=== PATIENT | male | born 1965 | race Caucasian/White ===

== ENCOUNTER 2019-03-30 04:58 | Inpatient (IN) | payer MEDICAID ==
[~2019-03-30] VITALS: Ht 185.4 cm; Wt 81.7 kg
--- NOTE | 2019-03-30 05:16 | NUR ---
Pt to room, placed on monitor and md and primary nurse at bedside, pt notes that his doctor told him his heart is only functioning at 10%
--- NOTE | 2019-03-30 05:17 | NUR ---
Pt presents to ed c/o hx of chf and due to unforeseen circumstances ran out of medications. C/o increasing swelling in legs and sobx2 weeks (around when medications ran out). States sob worse while lying flat. Denies cp. spo2 of 100% ra. tachy in room. Admits to utilizing iv meth as of recent. All monitoring applied. Vss. Call light within reach. Md at bedside for assessment.
[2019-03-30] MEDS ORDERED: SODIUM CHLORIDE FLUSH 10ML SYR IVF ONE (05:30)
--- NOTE | 2019-03-30 05:43 | NUR ---
Aware of need for urine. States unable to at this time.
[2019-03-30 05:58] LABS: MEAN CORPUSCULAR HEMOGLOBIN 22.6 pg (27.5-34.5); MEAN CORPUSCULAR HGB CONC 30.8 g/dL (33.2-36.2); MEAN CORPUSCULAR VOLUME 73.5 fL (81-97); MEAN PLATELET VOLUME 8.3 fL (7.4-10.4); PLATELET COUNT 525 x10^3/uL (130-400); RED BLOOD COUNT 4.52 x10^6/uL (4.38-5.82); RED CELL DISTRIBUTION WIDTH 16.9 % (9.4-14.8)
[2019-03-30 06:02] LABS: INTERNATIONAL NORMALIZED RATIO 1.18 (0.93-1.1); PROTHROMBIN TIME 12.3 Seconds (9.6-11.5)
[2019-03-30 06:05] LABS: ALANINE AMINOTRANSFERASE 97 U/L (12-78); ALBUMIN 2.7 g/dL (3.4-5.0); ANION GAP 7 mmol/L (5-15); CALCIUM 8.1 mg/dL (8.5-10.1); CHLORIDE 110 mmol/L (98-107); CREATININE 1.09 mg/dL (0.7-1.3)
[2019-03-30 06:10] LABS: ALKALINE PHOSPHATASE 533 U/L (45-117); BILIRUBIN,TOTAL 0.7 mg/dL (0.2-1.0); TOTAL PROTEIN 5.9 g/dL (6.4-8.2)
[2019-03-30 06:21] LABS: ANISOCYTOSIS 1+; BASOPHILS % (AUTO) 2 % (0-1); EOSINOPHILS # (AUTO) 0.12 x10^3/uL (0-0.4); EOSINOPHILS % (AUTO) 2 % (1-7); HYPOCHROMIA 1+; LYMPHOCYTES # (AUTO) 1.64 x10^3/uL (1-3.4); LYMPHOCYTES % (AUTO) 24 % (22-44); MD MORPH REVIEW ONLY; MICROCYTOSIS 1+; MONOCYTES # (AUTO) 0.59 x10^3/uL (0.2-0.8); MONOCYTES % (AUTO) 9 % (2-9); NEUTROPHILS # (AUTO) 4.37 x10^3/uL (1.8-6.8); NEUTROPHILS % (AUTO) 64 % (42-75); POLYCHROMASIA 1+
[2019-03-30 06:22] LABS: <PLATELET ESTIMATE> INCREASED; <PLT MORPHOLOGY> NORMAL PLT MORPH
[2019-03-30] MEDS ORDERED: ASPIRIN 81 MG TABLET CHEW ONE (06:27)
[2019-03-30] MEDS ORDERED: ASPIRIN 81 MG TABLET CHEW PO ONE (06:30)
--- NOTE | 2019-03-30 06:47 | NUR ---
Report to Sofie jacinto. Addendum: 03/30/19 at 0648 by DEVIN Report to Kimberly jacinto.
--- NOTE | 2019-03-30 07:25 | NUR ---
TO CT AFTER IV ESTABLISHED
[2019-03-30] MEDS ORDERED: OMNIPAQUE 350 MG/ML, 100ML BOTTLE ONE (07:51)
--- NOTE | 2019-03-30 08:03 | NUR ---
PT DENIES CP BUT C/O RIGHT GROIN PAIN FROM WHAT HE HAS BEEN TOLD IS A HERNIA. DENIES SOB WHILE AT REST. CONTINUE TO MONITOR
[2019-03-30] MEDS ORDERED: CEFTRIAXONE PMX 1GM/50ML 50 ML ONE (08:54)
[2019-03-30] MEDS ORDERED: CEFTRIAXONE PMX 1GM/50ML 50 ML IVPB ONE (09:00)
[2019-03-30] MEDS ORDERED: AZITHROMYCIN 500 MG in SODIUM CHLORIDE 0.9% 250 ML IVPB ONE (09:00)
[2019-03-30] MEDS ORDERED: SODIUM CHLORIDE FLUSH 10ML SYR IVF PRN (09:00)
[2019-03-30] MEDS: SODIUM CHLORIDE 0.9% 1,000 ML IV ONE ×2 (09:02→09:11)
--- NOTE | 2019-03-30 09:02 | NUR ---
REPORT TO AIXA DINERO
--- NOTE | 2019-03-30 09:10 | NUR ---
Michelle culp. NS held per [facility] MD orders. Remains tachycardic. Will continue to monitor.
[2019-03-30] MEDS ORDERED: ACETAMINOPHEN 325 MG TABLET PO PRN (09:30)
[2019-03-30] MEDS ORDERED: LABETALOL 5MG/ML, 20ML IVPush PRN (09:30)
--- NOTE | 2019-03-30 09:36 | NUR ---
PT WITH [facility] [place]. DENIED BY [facility] AT [facility] AND NORI AT [facility]
[2019-03-30 10:02] LABS: % IRON SATURATION 3 % (20-55); IRON LEVEL 11 mcg/dL (65-175); TOTAL IRON BINDING CAPACITY 430 mcg/dL (250-450)
[2019-03-30 10:09] LABS: % IRON SATURATION 3 % (20-55); IRON LEVEL 11 mcg/dL (65-175); TOTAL IRON BINDING CAPACITY 425 mcg/dL (250-450)
[2019-03-30 10:10] LABS: TROPONIN I 0.775 ng/mL (0.000-0.045)
[2019-03-30 10:36] VITALS: BP 108/75
[2019-03-30] MEDS: NICOTINE 7 MG/24 HR PATCH.TD24 TD SCH (10:54)
[2019-03-30] MEDS: HEPARIN 5,000 UNITS/ML, 1ML SQ SCH ×2 (10:54→18:41)
[2019-03-30] MEDS: IRON SUCROSE COMPLEX 100MG/5ML IV SCH (13:00)
[2019-03-30 13:14] LABS: MICROSCOPIC NOT IND
[2019-03-30 13:18] LABS: CULTURE INDICATED? NO
[2019-03-30 13:25] LABS: AMPHETAMINE SCREEN, URINE Positive (Negative); BARBITURATE SCREEN, URINE Negative (Negative); BENZODIAZEPINE SCREEN, URINE Negative (Negative); CANNABINOID SCREEN, URINE Negative (Negative); COCAINE SCREEN, URINE Negative (Negative); METHADONE SCREEN, URINE Negative (Negative); OPIATE SCREEN, URINE Negative (Negative)
[2019-03-30 15:14] VITALS: BP 112/84
[2019-03-30 15:15] LABS: TROPONIN I 0.518 ng/mL (0.000-0.045)
[2019-03-30] MEDS: FUROSEMIDE 40 MG/4 ML IV SCH (16:53)
[2019-03-30 16:59] LABS: HEMOGLOBIN A1C 6.3 % (4.2-6.3)
[2019-03-30 18:37] VITALS: BP 116/75
[2019-03-30] MEDS: CARVEDILOL 3.125 MG TABLET PO SCH (18:38)
[2019-03-30 19:46] VITALS: BP 116/84
[2019-03-30] MEDS: ATORVASTATIN 40 MG TABLET PO SCH (20:31)
[2019-03-30 22:09] LABS: TROPONIN I 0.383 ng/mL (0.000-0.045)
[2019-03-31] VITALS (7 sets, daily range): BP systolic 89–119; BP diastolic 61–78
[2019-03-31] MEDS: HEPARIN 5,000 UNITS/ML, 1ML SQ SCH ×3 (03:16→19:32)
[2019-03-31 05:34] LABS: ALBUMIN 2.4 g/dL (3.4-5.0); ANION GAP 6 mmol/L (5-15); CALCIUM 7.8 mg/dL (8.5-10.1); CHLORIDE 108 mmol/L (98-107)
[2019-03-31 05:38] LABS: ALANINE AMINOTRANSFERASE 135 U/L (12-78); ALKALINE PHOSPHATASE 611 U/L (45-117); BILIRUBIN,TOTAL 0.9 mg/dL (0.2-1.0); CREATININE 0.98 mg/dL (0.7-1.3); TOTAL PROTEIN 5.6 g/dL (6.4-8.2)
[2019-03-31] MEDS: CARVEDILOL 3.125 MG TABLET PO SCH (06:22)
[2019-03-31 07:35] LABS: MEAN CORPUSCULAR HEMOGLOBIN 21.9 pg (27.5-34.5); MEAN CORPUSCULAR HGB CONC 30.3 g/dL (33.2-36.2); MEAN CORPUSCULAR VOLUME 72.3 fL (81-97); MEAN PLATELET VOLUME 8.5 fL (7.4-10.4); PLATELET COUNT 430 x10^3/uL (130-400); RED BLOOD COUNT 4.31 x10^6/uL (4.38-5.82); RED CELL DISTRIBUTION WIDTH 16.9 % (9.4-14.8)
[2019-03-31 07:46] LABS: BASOPHILS # (AUTO) 0.06 x10^3/uL (0-0.1); BASOPHILS % (AUTO) 1 % (0-1); EOSINOPHILS # (AUTO) 0.09 x10^3/uL (0-0.4); EOSINOPHILS % (AUTO) 1 % (1-7); LYMPHOCYTES # (AUTO) 1.45 x10^3/uL (1-3.4); LYMPHOCYTES % (AUTO) 20 % (22-44); MD SCAN; MONOCYTES # (AUTO) 0.93 x10^3/uL (0.2-0.8); MONOCYTES % (AUTO) 13 % (2-9); NEUTROPHILS # (AUTO) 4.59 x10^3/uL (1.8-6.8); NEUTROPHILS % (AUTO) 64 % (42-75)
[2019-03-31] MEDS ORDERED: FINASTERIDE 5 MG TABLET ONE (09:20)
[2019-03-31] MEDS: IRON SUCROSE COMPLEX 100MG/5ML IV SCH (09:22)
[2019-03-31] MEDS: FINASTERIDE 5 MG TABLET PO SCH (09:23)
[2019-03-31] MEDS: ASPIRIN 81 MG TABLET CHEW PO SCH (09:23)
[2019-03-31] MEDS: FUROSEMIDE 40 MG/4 ML IV SCH ×2 (09:23→18:05)
[2019-03-31] MEDS: NICOTINE 7 MG/24 HR PATCH.TD24 TD SCH (11:45)
[2019-03-31] MEDS: CARVEDILOL 6.25 MG TABLET PO SCH (18:05)
[2019-03-31] MEDS: ATORVASTATIN 40 MG TABLET PO SCH (21:03)
[2019-04-01] VITALS (7 sets, daily range): BP systolic 94–119; BP diastolic 60–79
[2019-04-01] MEDS: HEPARIN 5,000 UNITS/ML, 1ML SQ SCH ×3 (02:55→17:05)
[2019-04-01] MEDS: CARVEDILOL 6.25 MG TABLET PO SCH ×2 (06:05→17:05)
[2019-04-01 08:27] LABS: ALANINE AMINOTRANSFERASE 137 U/L (12-78); ALBUMIN 2.4 g/dL (3.4-5.0); ANION GAP 6 mmol/L (5-15); CALCIUM 8.1 mg/dL (8.5-10.1); CHLORIDE 109 mmol/L (98-107); CREATININE 0.89 mg/dL (0.7-1.3)
[2019-04-01 08:29] LABS: ALKALINE PHOSPHATASE 573 U/L (45-117); BILIRUBIN,TOTAL 0.6 mg/dL (0.2-1.0); TOTAL PROTEIN 5.4 g/dL (6.4-8.2)
[2019-04-01] MEDS: FINASTERIDE 5 MG TABLET PO SCH (08:36)
[2019-04-01] MEDS: IRON SUCROSE COMPLEX 100MG/5ML IV SCH (08:36)
[2019-04-01] MEDS: ASPIRIN 81 MG TABLET CHEW PO SCH (08:37)
[2019-04-01] MEDS: FUROSEMIDE 40 MG/4 ML IV SCH ×2 (08:37→17:05)
[2019-04-01] MEDS: LOSARTAN 25MG TABLET PO SCH (10:03)
[2019-04-01] MEDS: NICOTINE 7 MG/24 HR PATCH.TD24 TD SCH (10:03)
[2019-04-01] MEDS: ATORVASTATIN 40 MG TABLET PO SCH (20:01)
[2019-04-02] MEDS: HEPARIN 5,000 UNITS/ML, 1ML SQ SCH ×2 (01:21→10:44)
[2019-04-02 01:30] VITALS: BP 105/72
[2019-04-02] MEDS: CARVEDILOL 6.25 MG TABLET PO SCH ×2 (06:22→16:53)
[2019-04-02] MEDS: FUROSEMIDE 40 MG/4 ML IV SCH ×2 (07:30→16:53)
[2019-04-02 08:03] VITALS: BP 107/74
[2019-04-02] MEDS: FINASTERIDE 5 MG TABLET PO SCH (08:05)
[2019-04-02] MEDS: IRON SUCROSE COMPLEX 100MG/5ML IV SCH (08:05)
[2019-04-02] MEDS: LOSARTAN 25MG TABLET PO SCH (08:05)
[2019-04-02] MEDS: ASPIRIN 81 MG TABLET CHEW PO SCH (08:05)
[2019-04-02] MEDS: NICOTINE 7 MG/24 HR PATCH.TD24 TD SCH (10:44)
[2019-04-02 11:45] LABS: ALANINE AMINOTRANSFERASE 123 U/L (12-78); ALBUMIN 2.5 g/dL (3.4-5.0); ANION GAP 5 mmol/L (5-15); CHLORIDE 110 mmol/L (98-107); CREATININE 0.97 mg/dL (0.7-1.3)
[2019-04-02 11:47] LABS: ALKALINE PHOSPHATASE 529 U/L (45-117); BASOPHILS # (AUTO) 0.05 x10^3/uL (0-0.1); BASOPHILS % (AUTO) 1 % (0-1); BILIRUBIN,TOTAL 0.4 mg/dL (0.2-1.0); EOSINOPHILS % (AUTO) 3 % (1-7); LYMPHOCYTES # (AUTO) 1.46 x10^3/uL (1-3.4); LYMPHOCYTES % (AUTO) 22 % (22-44); MD NO; MEAN CORPUSCULAR HEMOGLOBIN 22.8 pg (27.5-34.5); MEAN CORPUSCULAR HGB CONC 30.8 g/dL (33.2-36.2); MEAN CORPUSCULAR VOLUME 74.1 fL (81-97); MEAN PLATELET VOLUME 8.9 fL (7.4-10.4); MONOCYTES # (AUTO) 0.73 x10^3/uL (0.2-0.8); MONOCYTES % (AUTO) 11 % (2-9); NEUTROPHILS # (AUTO) 4.06 x10^3/uL (1.8-6.8); NEUTROPHILS % (AUTO) 62 % (42-75); PLATELET COUNT 439 x10^3/uL (130-400); RED BLOOD COUNT 4.43 x10^6/uL (4.38-5.82); RED CELL DISTRIBUTION WIDTH 16.3 % (9.4-14.8); TOTAL PROTEIN 5.4 g/dL (6.4-8.2)
[2019-04-02 13:49] VITALS: BP 94/56
[2019-04-02 16:52] VITALS: BP 116/73
[2019-04-02 18:54] VITALS: BP 98/65
[2019-04-02] MEDS: ATORVASTATIN 40 MG TABLET PO SCH (22:05)
[2019-04-03 01:57] VITALS: BP 106/71
[2019-04-03 05:19] LABS: BASOPHILS # (AUTO) 0.08 x10^3/uL (0-0.1); BASOPHILS % (AUTO) 1 % (0-1); EOSINOPHILS # (AUTO) 0.12 x10^3/uL (0-0.4); EOSINOPHILS % (AUTO) 2 % (1-7); LYMPHOCYTES # (AUTO) 1.63 x10^3/uL (1-3.4); LYMPHOCYTES % (AUTO) 23 % (22-44); MD NO; MEAN CORPUSCULAR HEMOGLOBIN 22.8 pg (27.5-34.5); MEAN CORPUSCULAR HGB CONC 30.8 g/dL (33.2-36.2); MEAN PLATELET VOLUME 8.6 fL (7.4-10.4); MONOCYTES # (AUTO) 1.01 x10^3/uL (0.2-0.8); MONOCYTES % (AUTO) 14 % (2-9); NEUTROPHILS # (AUTO) 4.23 x10^3/uL (1.8-6.8); NEUTROPHILS % (AUTO) 60 % (42-75); PLATELET COUNT 450 x10^3/uL (130-400); RED BLOOD COUNT 4.51 x10^6/uL (4.38-5.82); RED CELL DISTRIBUTION WIDTH 16.7 % (9.4-14.8)
[2019-04-03 05:29] LABS: CHLORIDE 108 mmol/L (98-107)
[2019-04-03 05:38] LABS: ALANINE AMINOTRANSFERASE 116 U/L (12-78); ALBUMIN 2.4 g/dL (3.4-5.0); ALKALINE PHOSPHATASE 507 U/L (45-117); ANION GAP 8 mmol/L (5-15); BILIRUBIN,TOTAL 0.8 mg/dL (0.2-1.0); CALCIUM 7.9 mg/dL (8.5-10.1); CREATININE 0.99 mg/dL (0.7-1.3); TOTAL PROTEIN 5.5 g/dL (6.4-8.2)
[2019-04-03] MEDS: CARVEDILOL 6.25 MG TABLET PO SCH (07:22)
[2019-04-03] MEDS ORDERED: FUROSEMIDE 40 MG TABLET PO SCH (08:00)
[2019-04-03] MEDS ORDERED: FURO40TA6 PO (09:46)
[2019-04-03] MEDS ORDERED: ATOR40TA78 PO (09:46)
[2019-04-03] MEDS ORDERED: FINA5TAB4 PO (09:46)
[2019-04-03] MEDS ORDERED: CARV12.543 PO (09:46)
[2019-04-03] MEDS ORDERED: LOSA25TA25 PO (09:46)
[2019-04-03] MEDS ORDERED: ASPI-515 PO (09:46)
[2019-04-03 09:58] VITALS: BP 99/62
[2019-04-03] MEDS: FINASTERIDE 5 MG TABLET PO SCH (09:59)
[2019-04-03] MEDS: IRON SUCROSE COMPLEX 100MG/5ML IV SCH (09:59)
[2019-04-03] MEDS: LOSARTAN 25MG TABLET PO SCH (10:00)
[2019-04-03] MEDS: ASPIRIN 81 MG TABLET CHEW PO SCH (10:00)
[2019-04-03] MEDS ORDERED: POTA10TA5 PO (10:43)
[2019-04-03] MEDS ORDERED: FERR-51 PO (10:43)
[2019-04-03] MEDS ORDERED: TAMS-11 PO (10:43)
[2019-04-03] MEDS: NICOTINE 7 MG/24 HR PATCH.TD24 TD SCH (11:30)
[2019-04-03] MEDS ORDERED: CARVEDILOL 12.5 MG TABLET PO SCH (18:00)
== END 2019-04-03 12:30 | disposition home or self-care (01) | DRG 291 ==
LOC: ED 07:42 → EDIP 09:10 → 5SO 10:35 → DCLOUNGE 04-03 12:20
PROVIDERS: ADMIT Hospitalist; ATTEND Hospitalist
DX: I11.0 Hypertensive heart disease with heart failure (principal); J98.59 Other diseases of mediastinum, not elsewhere classified; E44.0 Moderate protein-calorie malnutrition; I24.8 Other forms of acute ischemic heart disease; I47.2 Ventricular tachycardia; D50.9 Iron deficiency anemia, unspecified; I50.23 Acute on chronic systolic (congestive) heart failure; I42.7 Cardiomyopathy due to drug and external agent; Z68.23 Body mass index [BMI] 23.0-23.9, adult; F15.90 Other stimulant use, unspecified, uncomplicated; F17.210 Nicotine dependence, cigarettes, uncomplicated; I07.1 Rheumatic tricuspid insufficiency; K40.90 Unilateral inguinal hernia, without obstruction or gangrene, not specified as recurrent; K76.1 Chronic passive congestion of liver; Z79.82 Long term (current) use of aspirin; Z83.3 Family history of diabetes mellitus; R73.9 Hyperglycemia, unspecified
CPT/HCPCS: 36415; 71045; 71275; 76700; 76857; 80053; 80307; 81003; 82728; 83036; 83540; 83550; 83605; 83735; 83880; 84145; 84439; 84443; 84484; 85025; 85610; 85730; 86704; 86706; 86708; 86803; 87040; 87340; 93005; 93306; 96365; 99285; G0378; J0696; J1644; J1756; J1940; Q9967; J7030